=== PATIENT | male | born 1990 | race African-American/Black ===

== ENCOUNTER 2017-02-25 18:13 | Emergency (ER) | payer OTHER ==
[~2017-02-25] VITALS: Ht 177.8 cm; Wt 97.7 kg
[2017-02-25] MEDS ORDERED: FLUORESCEIN 1MG EYE STRIP. ONE (18:27)
[2017-02-25] MEDS ORDERED: TETRACAINE 0.5% OPHTH SOLUTION 4ML BOTTLE. ONE (18:27)
[2017-02-25] MEDS ORDERED: TETRACAINE 0.5% OPHTH SOLUTION 4ML BOTTLE. OS ONE (18:30)
[2017-02-25] MEDS ORDERED: FLUORESCEIN 1MG EYE STRIP. OS ONE (18:30)
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
[2017-02-25] MEDS ORDERED: BACI28.43 TP (19:47)
[2017-02-25] MEDS ORDERED: ACETAMINOPHEN 325 MG TABLET PO ONE ×2 (19:58→20:00)
[2017-02-25 20:00] VITALS: BP 143/96
== END 2017-02-25 20:02 | disposition home or self-care (01) ==
LOC: ER 18:13
DX: S09.90XA Unspecified injury of head, initial encounter (principal); S01.112A Laceration without foreign body of left eyelid and periocular area, initial encounter; H53.8 Other visual disturbances; Y08.89XA Assault by other specified means, initial encounter; Y93.89 Activity, other specified; Y99.8 Other external cause status; Y92.89 Other specified places as the place of occurrence of the external cause
CPT/HCPCS: 70450; 70486; 99284-25